=== PATIENT | female | born 2000 | race Caucasian/White ===

== ENCOUNTER → 2023-05-01 | Outpatient (CLI) | payer SELFPAY ==
[2023-05-03 13:07] LABS: QNTFERON TB Mitogen Value > 10.00 IU/mL (.); QNTFERON TB Nil Value 0.42 IU/mL (.); QNTFERON TB2+ Ag Value 0.35 IU/mL (.); QNTIFERON TB Positive Criteria Negative (Negative); V-Zoster IgG (Immunity) < 135 index (Immune >165)
== END | disposition home or self-care (01) ==
PROVIDERS: PCP Family Medicine; Referring Provider Family Medicine; Visit Provider Family Medicine
DX: Z71.85 Encounter for immunization safety counseling (principal)
CPT/HCPCS: 36415; 86480; 86787

== ENCOUNTER 2025-02-15 08:50 | Emergency (ER) | payer OTHER, SELFPAY ==
[2025-02-15 08:55] VITALS: BP 153/89; PULSE 89; RESP 18; TEMP 36.8; O2SAT 100; BMI 55.7
--- NOTE | 2025-02-15 09:12 | US_ITS ---
PROCEDURE: GALLBLADDER 02/15/2025 REASON FOR EXAM: PAIN COMPARISON: None. FINDINGS: Liver: Enlarged, measured at 19.1 cm in length. No focal process is seen, but increased echogenicity most consistent with diffuse fatty infiltration of the liver is noted. The main portal vein demonstrates hepatopetal flow. Gallbladder: At least 2 gallstones are seen within the gallbladder lumen, the larger measured at 10 x 9 x 6 mm. No evidence of gallbladder wall thickening or pericholecystic fluid collection. No sonographic Vicente's sign was elicited Common bile duct: 3.1 mm diameter . Pancreas: Normal Other: Visualized portions of the right kidney are unremarkable. No right upper quadrant ascites. US/Gallbladder IMPRESSION: 1. Cholelithiasis. 2. Hepatomegaly with diffusely increased echogenicity, most consistent with dif fuse fatty infiltration of the liver. 3. No acute process is seen. Reading Location: [place] [id number]
--- NOTE | 2025-02-15 09:13 | ED.VIS.GI ---
HPI HPI - GI History of Present Illness Chief Complaint: Abd Pain Detail of Chief Complaint: Abdominal pain Informant: patient Narrative Narrative: Patient presents with abdominal pain that started initially last evening was more mild. This morning she woke up and ate a protein shake and had more discomfort and then thought she was hungry so she ate some cereal and had more pain in the upper abdomen. She had nausea but no vomiting. Also few episodes of watery stool this morning. Patient denies fevers but felt cold this morning which was unusual. Patient had a vaginal delivery 2 months ago. She denies urinary symptoms. Patient nursing her baby [facility] Medical History (Updated 02/15/25 @ 12:[address] Samy Lowery, DO) Abdominal pain Home Medications ?Medication ?Instructions ?Recorded ?Last Taken ?Type NK 02/15/25 Unknown History Allergy/AdvReac Type Severity Reaction Status Date / Time No Known Allergies Allergy Verified 02/15/25 08:57 Social History Smoking Status: Never smoker ROS ROS ED Review of Systems ROS Unobtainable: other Constitutional Constitutional ED: Reports lethargy; Denies chills, fever(s), sweats or weight loss Eyes Eyes: Denies blurry vision, change in vision or diplopia ENT ENT ED: Denies rhinorrhea or sore throat Cardiovascular Cardiovascular: Reports chest pain and racing heartbeat; Denies orthopnea Respiratory/Chest Respiratory/Chest: Denies cough, dyspnea, dyspnea on exertion, orthopnea or sputum Gastrointestinal Gastrointestinal: Reports abdominal pain, diarrhea and nausea; Denies vomiting Genitourinary Genitourinary ED: Denies dysuria, hematuria or urinary frequency Musculoskeletal Musculoskeletal: Denies arthralgias, back pain, myalgias or neck pain Integumentary Denies abscess, Abrasions or rash Neurologic Neurologic: Denies headache(s) or weakness Psychiatric Psychiatric: Denies anxiety, depression or suicidal thoughts Endocrine Endocrinology: Denies polydipsia, polyphagia or polyuria Hematologic/Lymphatic Hematologic/Lymphatic: Denies easy bleeding, easy bruising or lymphadenopathy Allergic/Immunologic Allergic/Immunologic ED: Denies mouth swelling, tongue swelling or urticaria EXAM Physical Exam Const Vital Signs: 02/15/25 08:55 02/15/25 12:19 Temperature 98.3 F 98.6 F Temperature Source Oral Oral Pulse Rate 89 75 Respiratory Rate 18 16 Blood Pressure 153/89 H 115/78 Blood Pressure Mean 110 90 Pulse Ox 100 99 Oxygen Delivery Method Room Air Room Air Positive well nourished and well developed General Appearance ED: well developed and NAD HEENT Reports TM's clear and moist mucous membranes normocephalic and atraumatic; Negative for trauma or tenderness Tympanic Membrane ED: Yes TM's clear Eyes PERRL and EOMs intact bilaterally General Eye ED: Negative for pale conjunctiva or scleral icterus Neck no lymphadenopathy, supple and no JVD General: Negative for tenderness Chest Wall inspection of chest normal and palpation of chest normal Chest: Negative for tenderness Resp normal respiratory effort and clear to auscultation bilaterally Effort and Inspection: Negative for respiratory distress or pain with movement Auscultation: Negative for rhonchi, wheezes or diminished lung sounds Cardio regular rate, regular rhythm, S1 normal heart sound, S2 normal heart sound and no murmurs Peripheral Pulses: pulses 2+ throughout GI normal to inspection, nondistended, normoactive bowel sounds, soft to palpation, non-distended and no masses GI Narrative: Tenderness palpation over the epigastric and right upper quadrant with some guarding. There is positive Vicente sign. There is no rebound or rigidity. Patient morbidly obese Back/Spine no CVA tenderness and no thoracic nor lumbar tenderness Extremity normal to inspection General Extremety ED: Negative for edema General Extremity: Negative for edema Neuro oriented x3, CN's II-XII intact bilaterally, no sensory deficits noted and gait normal Sensorium / Orientation: awake, alert, oriented to person, oriented to place and oriented to time Motor Exam: strength 5/5 throughout and strength abnormal Psych mental status grossly normal Skin no rashes or lesions noted and no wounds MDM MDM MDM Narrative Medical decision making narrative: Patient with upper abdomen pain worse after eating. Patient with recent delivery 2 months ago. On exam positive Vicente sign and concern for gallbladder disease. IV line established. CBC with differential obtained showed elevated white count 11.8 with hemoglobin 12.4 and platelet count of 345. Chemistries unremarkable. Lactate normal at 1.6. AST was 21 and ALT was 22. Phos was 122. hCG negative. Urinalysis normal. Gallbladder ultrasound obtained showed gallstones without pericholecystic fluid. No gallbladder wall thickening. Her common bile duct was 3.1 mm. Patient continues to have pain with palpation of the upper abdomen. Discussed case with general surgeon on-call Dr. Kilpatrick who will present to the emergency department to evaluate patient for definitive care. Patient was given option by surgeon to have surgery to remove her gallbladder versus doing it as an outpatient electively. Patient would prefer to go home. I was asked to discharge patient to home and have her return if worsening pain, fever, vomiting, or condition worsen anyway. Lab Data Attestation: I reviewed the patient's lab results. Labs: Laboratory Results - last 24 hr 02/15/25 02/15/25 09:15 11:28 WBC 11.8 H RBC 4.53 Hgb 12.4 Hct 37.8 MCV 83.4 MCH 27.4 MCHC 32.8 RDW Std Deviation 40.5 RDW Coeff of Sang 13.3 Plt Count 345 MPV 8.2 Immature Gran % (Auto) 0.600 Neut % (Auto) 76.5 H Lymph % (Auto) 16.6 L [place] % (Auto) 5.2 Eos % (Auto) 0.8 Baso % (Auto) 0.3 Absolute Neuts (auto) 9.1 H Absolute Lymphs (auto) 1.96 Nucleated RBC % 0 Sodium 140 Potassium 4.3 Chloride 104 Carbon Dioxide 23.7 Anion Gap 12 BUN 20 H Creatinine 0.94 Estim Creat Clear Calc 124.44 Est GFR (MDRD) Non-Af 87 BUN/Creatinine Ratio 21.2 H Glucose 111 H Lactic Acid 1.6 Calcium 9.7 Total Bilirubin < 0.15 AST 21 ALT 22 Alkaline Phosphatase 122 H Total Protein 7.0 Albumin 3.9 Globulin 3.1 Albumin/Globulin Ratio 1.3 Lipase 26 Serum , Qual NEGATIVE Urine Color Straw Urine Clarity Clear Urine pH 6.5 Ur Specific [place] 1.010 Urine Protein 15 H Urine Glucose (UA) Normal Urine Ketones Negative Urine Occult Blood Negative Urine Nitrite Negative Urine Bilirubin Negative Urine Urobilinogen Normal Ur Leukocyte Esterase Negative Urine RBC 0 SEEN Urine WBC 0 SEEN Ur Squamous Epith Cells 0-5 SEEN Urine Bacteria 0 SEEN Urine Mucus 0 SEEN Radiography Diagnostic Testing: Clinical Impression(s) from Imaging Studies Gallbladder Ultrasound 02/15/25 09:12 IMPRESSION: 1. Cholelithiasis. 2. Hepatomegaly with diffusely increased echogenicity, most consistent with diffuse fatty infiltration of the liver. 3. No acute process is seen. Reading Location: [id number] Discharge Plan Triage Chief Complaint: Abd Pain ED Provider: Samy Lowery Dx/Rx/DC Orders Clinical Impression: Abdominal pain, Cholelithiasis Instructions: ED Gallstones with Biliary Colic Prescriptions: No Action NK Primary Care Provider: Rasheeda Sarah Referrals: Vernon Kilpatrick MD [Med Staff - Active Staff] - Keep [facility] appointment Rasheeda Sarah MD [Primary Care Provider] - Print Language: Welsh Disposition Disposition: Home, Self Care
[2025-02-15 09:34] LABS: Absolute Lymphocyte Count 1.96 X10^3/uL (0.83-4.51); Absolute Neutrophil Count 9.1 X10^3/uL (2.0-7.7); Basophil# 0.04 X10^3/uL; Basophil% 0.3 % (0-1); Eosinophil# 0.09 X10^3/uL; Eosinophils% 0.8 % (0-5); Hematocrit 37.8 % (37-47); Hemoglobin 12.4 g/dL (12.0-15.0); Lymphocyte # 1.96 X10^3/ul (0.83-4.51); Lymphocyte % 16.6 % (19-41); Mean Corp Hgb Conc 32.8 g/dL (32-36); Mean Corpuscular Hgb 27.4 pg (27.0-32.0); Mean Corpuscular Volume 83.4 fL (81-99); Mean Platelet Vol. 8.2 fl (6.2-12.0); Monocyte# 0.62 X10^3/uL; Monocyte% 5.2 % (0-10); NRBC Flagged by Analyzer 0 % (0-5); Neutrophil # 9.05 X10^3/uL (2.7-7.7); Neutrophil % 76.5 % (47-70); Platelet Count 345 K/mm3 (150-450); RBC Distribution Width CV 13.3 % (11.6-14.6); RBC Distribution Width SD 40.5 fl (35.1-43.9); Red Blood Count 4.53 M/mm3 (4.2-5.4); White Blood Count 11.8 K/mm3 (4.4-11.0)
[2025-02-15 09:49] LABS: Internal QC Validated? YES +Cl - CLEAR BKGD; Pregnancy, Serum, hCG Quali. NEGATIVE Negative
[2025-02-15 10:09] LABS: Lactic Acid 1.6 mmol/L (0.0-2.0)
[2025-02-15 10:10] LABS: Lipase 26 U/L (13-75)
[2025-02-15 10:13] LABS: ALB/GLOB Ratio 1.3 RATIO (0.9-2.4); AST(SGOT) 21 U/L (<=31); Alanine Aminotransfer ALT/SGPT 22 U/L (<=34); Albumin, Serum 3.9 g/dL (3.5-5.0); Alkaline Phosphatase 122 U/L (35-104); Anion Gap 12 (5-15); BUN 20 mg/dL (4-19); BUN/Creat Ratio 21.2 RATIO (10-20); Calcium,Total 9.7 mg/dL (7.6-11.0); Carbon Dioxide 23.7 mmol/L (21.0-32.0); Chloride 104 mmol/L (98-108); Creatinine, Serum 0.94 mg/dL (0.70-1.20); EST Glomerular Filtration Rate 87 (>60); Estimated Creatinine Clearance 124.44 ml/min (50-250); Globulin 3.1 g/dL (2.2-4.2); Glucose 111 mg/dL (70-99); Potassium 4.3 mmol/L (3.3-5.1); Sodium Level 140 mmol/L (133-145); Total Bilirubin < 0.15 mg/dL (0.00-1.30)
[2025-02-15] MEDS: 0.9% Normal Saline (1000mL) 1,000 ML 125 ML IV (10:28)
[2025-02-15 11:57] LABS: Bacteria 0 SEEN /hpf (None Seen); Mucous, Urine 0 SEEN /hpf (<or=2+); Red Blood Cells-Urine 0 SEEN /hpf (0-5); White Blood Cells 0 SEEN /hpf (0-5)
[2025-02-15 12:17] LABS: Color, Urine Straw (Yellow); Glucose, Dipstick Normal (Normal); Ketone-Dipstick Negative (Negative); Leukocyte Esterase-Dipstick Negative /ul (Negative); Nitrite-Dipstick Negative (Negative); Occult Blood-Urine Negative /ul (Negative); Protein-Dipstick 15 mg/dl (Negative); Urine Bilirubin Dipstick Negative (Negative); Urine Clarity Clear (Clear); Urine Urobilinogen Normal (Normal); Urine pH 6.5 (5.0 - 8.0)
[2025-02-15 12:19] VITALS: BP 115/78; PULSE 75; RESP 16; TEMP 37; O2SAT 99
[2025-02-15 12:23] LABS: Squamous Epithelial Cells - UA 0-5 SEEN /hpf (5-10)
--- NOTE | 2025-02-15 13:08 | CON.PCM.SX_ITS ---
Assessment & Plan Assessment/Plan (1) Cholelithiasis: PLAN: The patient has 2 gallstones on her ultrasound with no thickening or pericholecystic fluid. Her white count was mildly elevated with a small left shift but she says that she feels improved. I did go over her results with her and I offered her surgery tomorrow versus elective surgery and she would like to try for elective surgery as she has a new baby at home and would like to have this scheduled if possible. I will put her on for March 01 and I told her if any of her symptoms return or she feels pain that does not go away or nausea or vomiting that she should return to the emergency room or call my office and I will get her in sooner. Vernon Kilpatrick MD Pager: [facility] [address] [place] [address], [address] [place] [address] Office: HPI Consult Data Date of Consult: 02/15/25 HPI Narrative HPI Narrative: MOLLY BATEMAN, is a 24 F who presents with right upper quadrant pain that started last night. She reports that the right upper quadrant pain started yesterday evening and it extended until this morning and she ate breakfast and the pain got a little worse. She came to the emergency room and currently her pain has resolved and she denies any nausea or vomiting [facility] Medical History (Updated 02/15/25 @ 12:[address] Samy Lowery, DO) Abdominal pain Home Medications ?Medication ?Instructions ?Recorded ?Last Taken ?Type NK 02/15/25 Unknown History Allergy/AdvReac Type Severity Reaction Status Date / Time No Known Allergies Allergy Verified 02/15/25 08:57 Social History Smoking Status: Never smoker Physical Exam Const alert, oriented x3 and no apparent distress HEENT normocephalic Eyes PERRL Resp normal respiratory effort Cardio Rate: regular rate Rhythm: regular rhythm GI soft to palpation, non-tender and non-distended Lab / Micro Data 02/15/25 09:15 02/15/25 09:15 Labs: Laboratory Results - last 24 hr 02/15/25 09:15: WBC 11.8 H, RBC 4.53, Hgb 12.4, Hct 37.8, MCV 83.4, MCH 27.4, MCHC 32.8, RDW Std Deviation 40.5, RDW Coeff of Sang 13.3, Plt Count 345, MPV 8.2, Immature Gran % (Auto) 0.600, Neut % (Auto) 76.5 H, Lymph % (Auto) 16.6 L, [place] % (Auto) 5.2, Eos % (Auto) 0.8, Baso % (Auto) 0.3, Absolute Neuts (auto) 9.1 H, Absolute Lymphs (auto) 1.96, Nucleated RBC % 0, Sodium 140, Potassium 4.3, Chloride 104, Carbon Dioxide 23.7, Anion Gap 12, BUN 20 H, Creatinine 0.94, Estim Creat Clear Calc 124.44, Est GFR (MDRD) Non-Af 87, BUN/Creatinine Ratio 21.2 H, Glucose 111 H, Lactic Acid 1.6, Calcium 9.7, Total Bilirubin < 0.15, AST 21, ALT 22, Alkaline Phosphatase 122 H, Total Protein 7.0, Albumin 3.9, Globulin 3.1, Albumin/Globulin Ratio 1.3, Lipase 26, Serum , Qual NEGATIVE 02/15/25 11:28: Urine Color Straw, Urine Clarity Clear, Urine pH 6.5, Ur Specific [place] 1.010, Urine Protein 15 H, Urine Glucose (UA) Normal, Urine Ketones Negative, Urine Occult Blood Negative, Urine Nitrite Negative, Urine Bilirubin Negative, Urine Urobilinogen Normal, Ur Leukocyte Esterase Negative, Urine RBC 0 SEEN, Urine WBC 0 SEEN, Ur Squamous Epith Cells 0-5 SEEN, Urine Bacteria 0 SEEN, Urine Mucus 0 SEEN Imaging Radiology Impression Gallbladder Ultrasound 02/15/25 09:12 IMPRESSION: 1. Cholelithiasis. 2. Hepatomegaly with diffusely increased echogenicity, most consistent with diffuse fatty infiltration of the liver. 3. No acute process is seen. Reading Location: [place] [id number]
== END 2025-02-15 13:08 | disposition home or self-care (01) ==
PROVIDERS: Emergency Provider Emergency Medicine; PCP Family Medicine; Visit Provider Emergency Medicine
DX: K80.20 Calculus of gallbladder without cholecystitis without obstruction (principal); E66.01 Morbid (severe) obesity due to excess calories
CPT/HCPCS: 76705; 80053; 81001; 83605; 83690; 84703; 85025; 96360; 96361; 99283; A4216